=== PATIENT | male | born 1960 | race African-American/Black ===

== ENCOUNTER 2018-12-15 09:47 | Inpatient (IN) | payer OTHER ==
[2018-12-15 10:17] VITALS: BMI 25.0
--- NOTE | 2018-12-15 10:55 | HP ---
Addendum entered and electronically signed by Shelia Iqbal, RESIDENT 12/15/18 11 :16: +alcohol withdrawal and intoxication Original Note: CIWA Score Nausea/Vomitin Muscle Tremors: 3 Anxiety: 2 Agitation: 0-Normal Activity Paroxysmal Sweats: 2 Orientation: 0-Oriented Tacttile Disturbances: 1-Very Mild Itch/Numbness Auditory Disturbances: 0-None Visual Disturbances: 0-None Headache: 1-Very Mild CIWA-Ar Total Score: 12 - Admission Criteria OASAS Guidelines: Admission for Medically Managed Detox: Requires at least one of the followin. CIWA greater than 12 2. Seizures within the past 24 hours 3. Delirium tremens within the past 24 hours 4. Hallucinations within the past 24 hours 5. Acute intervention needed for co occurring medical disorder 6. Acute intervention needed for co occurring psychiatric disorder 7. Severe withdrawal that cannot be handled at a lower level of care (continued vomiting, continued diarrhea, abnormal vital signs) requiring intravenous medication and/or fluids 8. Admission ROS [facility] Chief Complaint: 58 y/o M with PMH HTN, HLD who presents for alcohol detox. This AM drank 5 beers. Usually drinks daily 15 beers/day. Has relapsed ever since he and his a year ago. Has been in detox for alcohol previously at [facility] 2013 , 2016. Longest sobriety has been 7 months. No alcohol seizures in past, no past suicidal attempts. No psych history. Would like to go to assisted rehab after detox. PMH: HTN, HLD PsxH: gastric bypass, R hip replacement (2000), L knee sx meds: denies allergies: NKDA FH: dad- alcoholic, mother- heart condition SH: live in [place] in an apartment, with 27 year old daughter 1 ppd x 40 yrs cigarette smoking alcohol use as above used to use 20-30 yrs ago cocaine intranasally, smoked. no IVDA Allergies/Adverse Reactions: Allergies Allergy/AdvReac Type Severity Reaction Status Date / Time No Known Allergies Allergy Verified 12/15/18 10:10 History of Present Illness: 58 y/o M with PMH HTN, HLD who presents for alcohol detox Exam Limitations: No Limitations - Ebola screening Have you traveled outside of the country in the last 21 days: No Have you had contact with anyone from an Ebola affected area: No Do you have a fever: No - Review of Systems Constitutional: Unintentional Wgt. Loss EENT: reports: No Symptoms Reported Respiratory: reports: No Symptoms reported Cardiac: reports: No Symptoms Reported GI: reports: Nausea, Vomiting : reports: No Symptoms Reported Musculoskeletal: reports: No Symptoms Reported Integumentary: reports: No Symptoms Reported Neuro: reports: No Symptoms reported Endocrine: reports: No Symptoms Reported Hematology: reports: No Symptoms Reported Psychiatric: reports: Orientated x3 Patient History - Patient Medical History Hx Anemia: No Hx Asthma: No Hx Chronic Obstructive Pulmonary Disease (COPD): No Hx Cancer: No Hx Cardiac Disorders: No Hx Congestive Heart Failure: No Hx Hypertension: Yes Hx Hypercholesterolemia: Yes Hx Pacemaker: No HX Cerebrovascular Accident: No Hx Seizures: No Hx Dementia: No Hx Diabetes: No Hx Gastrointestinal Disorders: No Hx Liver Disease: No Hx Genitourinary Disorders: No Hx Sexually Transmitted Disorders: No Hx Renal Disease (ESRD): No Hx Thyroid Disease: No Hx Human Immunodeficiency Virus (HIV): No (negative) Hx Hepatitis C: No (negative) Hx Depression: No Hx Suicide Attempt: No (denies) Hx Bipolar Disorder: No Hx Schizophrenia: No - Patient Surgical History Past Surgical History: Yes Hx Neurologic Surgery: No Hx Cataract Extraction: No Hx Cardiac Surgery: No Hx Lung Surgery: No Hx Breast Surgery: No Hx Breast Biopsy: No Hx Abdominal Surgery: Yes (gastric bypass 2009) Hx Appendectomy: No Hx Cholecystectomy: No Hx Genitourinary Surgery: No Hx Section: No Hx Orthopedic Surgery: Yes (RT.HIP REPLACEMENT 1999 Lt knee sx 2002) Anesthesia Reaction: No - PPD History Documented Results: Negative w/o proof Date: 01/12/16 PPD to be Administered?: Yes - Reproductive History Patient is a Female of Child Bearing Age (11 -55 yrs old): No - Smoking Cessation Smoking history: Current every day smoker Have you smoked in the past 12 months: Yes Aproximately how many cigarettes per day: 20 Hx Chewing Tobacco Use: No Initiated information on smoking cessation: Yes 'Breaking Loose' booklet given: 12/15/18 - Substance & Tx. History Hx Alcohol Use: Yes Hx Substance Use: No Substance Use Type: Alcohol Hx Substance Use Treatment: No - Substances abused Alcohol Substance route: Oral Frequency: Daily Amount used: 03/30oz cans of beer Age of first use: 16 Date of last use: 12/15/18 Family Disease History - Family Disease History Family History: Denies Family Disease History: Other: Father (ALCOHOLIC), Mother (ALCOHOLIC) Admission Physical Exam [facility] - Vital Signs Vital Signs: Vital Signs - 24 hr 12/15/18 12/15/18 10:10 10:38 Temperature 97.6 F 97.6 F Pulse Rate 97 H 97 H Respiratory 17 17 Rate Blood Pressure 149/85 149/85 - Physical General Appearance: Yes: Within Normal Limits HEENTM: Yes: Within Normal Limits Respiratory: Yes: Expiration (+increased expiratory phase) Neck: Yes: Supple Breast: Yes: Breast Exam Deferred Cardiology: Yes: Regular Rate, S1, S2 Abdominal: Yes: Non Tender, Soft Genitourinary: Yes: Within Normal Limits Back: Yes: Within Normal Limits Musculoskeletal: Yes: full range of Motion, Joint Stiffness Extremities: Yes: Within Normal Limits Neurological: Yes: instructional specialist II-XII NML intact Integumentary: Yes: Dry, Warm Lymphatic: Yes: Within Normal Limits - Diagnostic (1) Alcohol dependence with uncomplicated withdrawal Current Visit: No Status: Chronic (2) Hypercholesteremia Current Visit: No Status: Chronic (3) Hypertension Current Visit: No Status: Chronic Qualifiers: Hypertension type: essential hypertension Qualified Code(s): I10 - Essential (primary) hypertension (4) Nicotine dependence Current Visit: No Status: Chronic Qualifiers: Nicotine product type: cigarettes Substance use status: uncomplicated Qualified Code(s): F17.210 - Nicotine dependence, cigarettes, uncomplicated Cleared for Admission [facility] - Detox or Rehab [facility] Level of Care: Medically Managed Detox Regimen/Protocol: Librium Breathalyzer - Breathalyzer Breathalyzer: 0.126 Urine Drug Screen - Test Device Lot number: [id number] Expiration date: 08/12/20 - Control Is test valid?: Yes - Results Drug screen NEGATIVE: Yes Inpatient Rehab Admission - Rehab Decision to Admit Inpatient rehab admission?: No
[2018-12-15] MEDS ORDERED: chlordiazePOXIDE HCL 10 MG CAPSULE PO PRN (11:05)
[2018-12-15] MEDS ORDERED: BISMUTH SUBSALICYLATE 262 MG/15 ML BTL PO PRN (11:06)
[2018-12-15] MEDS ORDERED: IBUPROFEN 400 MG TABLET (FP) PO PRN (11:06)
[2018-12-15] MEDS ORDERED: MELATONIN 5 MG TABLETS PO PRN (11:06)
[2018-12-15] MEDS ORDERED: MAGNESIUM HYDROX 2400MG/30ML ORAL SUSPENSION 30 ML CUP PO PRN (11:06)
[2018-12-15] MEDS ORDERED: NICOTINE POLACRILEX 2 MG GUM BUC PRN (11:06)
[2018-12-15] MEDS ORDERED: ACETAMINOPHEN 325 MG TABLET (FP) PO PRN ×2 (11:06)
[2018-12-15] MEDS ORDERED: MENTHOL/PHENOL 1 EACH UD MM PRN (11:06)
[2018-12-15] MEDS ORDERED: MAG HYDROX/AL HYDROX/SIMETH 30 ML UNIT-DOSE CUP PO PRN (11:06)
[2018-12-15] MEDS ORDERED: MAGNESIUM CITRATE 300 ML BOTTLE PO PRN (11:06)
[2018-12-15] MEDS ORDERED: hydrOXYzine PAMOATE 25 MG CAPSULE (FP) PO PRN (11:06)
[2018-12-15] MEDS ORDERED: METHOCARBAMOL 500 MG TABLET PO PRN (11:06)
--- NOTE | 2018-12-15 11:26 | PN ---
MILLIE Progress Note Note: this 58 years old male with alcohol dependence seeking detox i personally present,review and plan for treatment,history and examination by Dr.Abbi Bass, agreed and concurred that patient need inpatient detox,medical managed and librium regimen
--- NOTE | 2018-12-15 11:35 | PN ---
MILLIE Progress Note Note: patient has history of acute coronary artery disease s/p angioplasty with stent 4 years ago admitted in 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
[2018-12-15] MEDS: chlordiazePOXIDE HCL 25 MG CAPSULE PO SCH ×2 (12:52→22:29)
[2018-12-15] MEDS: ASPIRIN 81 MG CHEWABLE TABLETS PO SCH (12:52)
[2018-12-15] MEDS: NICOTINE 7 MG/24 HOURS TOPICAL PATCH TD SCH (12:57)
[2018-12-15 14:57] LABS: HEMOGLOBIN 9.5 GM/dL (11.7-16.9); MEAN PLT VOLUME 8.4 fl (7.5-11.1)
[2018-12-15 15:00] LABS: ALBUMIN 3.9 g/dl (3.4-5.0); BILIRUBIN,TOTAL 0.5 mg/dL (0.2-1); BLOOD UREA NITROGEN 9.8 mg/dL (7-18); CALCIUM 8.8 mg/dL (8.5-10.1); CREATININE 1.1 mg/dL (0.55-1.3); POTASSIUM 4.6 mmol/L (3.5-5.1); TOT PROT 8.4 g/dl (6.4-8.2)
[2018-12-15 15:07] LABS: HEMATOCRIT 31.4 % (35.4-49); MCHC 30.2 g/dl (32.0-35.9); MEAN CELL VOLUME 64.3 fl (80-96); PLATELET COUNT 197 K/MM3 (134-434); RBC 4.89 M/mm3 (4.00-5.60); RDW 21.2 % (11.9-15.9); WHITE BLOOD COUNT 5.9 K/mm3 (4.0-10.0)
[2018-12-15 15:08] LABS: MCH 19.4 pg (25.7-33.7)
[2018-12-15] MEDS ORDERED: THIAMINE HCL 100 MG TABLET (FP) PO SCH (22:00)
[2018-12-16] MEDS: chlordiazePOXIDE HCL 25 MG CAPSULE PO SCH ×2 (06:15→12:03)
[2018-12-16 09:40] LABS: URINE APPEARANCE CLEAR; URINE BILIRUBIN NEGATIVE (NEGATIVE); URINE COLOR YELLOW; URINE GLUCOSE (UA) NEGATIVE (NEGATIVE); URINE KETONE NEGATIVE (NEGATIVE); URINE LEUK ESTERASE NEGATIVE (NEGATIVE); URINE NITRITE POSITIVE (NEGATIVE); URINE PROTEIN NEGATIVE (NEGATIVE); URINE UROBILINOGEN 0.2 mg/dL (0.2-1.0)
[2018-12-16 09:45] VITALS: BP 186/90; PULSE 97; TEMP 97
[2018-12-16] MEDS ORDERED: PRENATAL VITAMINS W/ FOLIC ACID TABLET (FP) PO SCH (10:00)
--- NOTE | 2018-12-16 10:36 | EKG ---
Test Reason : Blood Pressure : / mmHG Vent. Rate : 080 BPM Atrial Rate : 080 BPM P-R Int : 144 ms QRS Dur : 102 ms QT Int : 418 ms P-R-T Axes : 074 013 046 degrees QTc Int : 482 ms NORMAL SINUS RHYTHM VOLTAGE CRITERIA FOR LEFT VENTRICULAR HYPERTROPHY INFERIOR INFARCT , AGE UNDETERMINED ABNORMAL ECG NO PREVIOUS ECGS AVAILABLE Confirmed by ZHANG GRIMALDO MD ([id number]) on 12/16/2018 10:36:01 AM Referred By: Confirmed By:ZHANG GRIMALDO MD
[2018-12-16] MEDS: NICOTINE 7 MG/24 HOURS TOPICAL PATCH TD SCH (10:53)
[2018-12-16] MEDS: ASPIRIN 81 MG CHEWABLE TABLETS PO SCH (10:53)
[2018-12-16 13:33] LABS: URINE RBC 0.7 /hpf (0-4); URINE WBC 0.3 /hpf (0-5)
--- NOTE | 2018-12-16 15:58 | DS ---
[facility] Detox Discharge Summary Admission Date: 12/15/18 Discharge Date: 12/16/18 - History Present History: Alcohol Dependence Additional Comments: 58 years old male admitted on 12/15/18 for alcohol withdrawal stabilization insists to leave the detox unit alert no acute distress denies suicidal ideation "family needs me" Pertinent Past History: hypertension hypercholesterolemia cardiac stent - Physical Exam Results Vital Signs: Vital Signs Temperature 97.0 F L 12/16/18 09:44 Pulse Rate 97 H 12/16/18 09:44 Respiratory Rate 18 12/16/18 09:44 Blood Pressure 186/90 H 12/16/18 09:44 O2 Sat by Pulse Oximetry (%) Pertinent Admission Physical Exam Findings: Laboratory Last Values WBC 5.9 K/mm3 (4.0-10.0) 12/15/18 11:15 RBC 4.89 M/mm3 (4.00-5.60) 12/15/18 11:15 Hgb 9.5 GM/dL (11.7-16.9) L 12/15/18 11:15 Hct 31.4 % (35.4-49) L D 12/15/18 11:15 MCV 64.3 fl (80-96) L 12/15/18 11:15 MCH 19.4 pg (25.7-33.7) L D 12/15/18 11:15 MCHC 30.2 g/dl (32.0-35.9) L 12/15/18 11:15 RDW 21.2 % (11.9-15.9) H 12/15/18 11:15 Plt Count 197 K/MM3 (134-434) D 12/15/18 11:15 MPV 8.4 fl (7.5-11.1) 12/15/18 11:15 Sodium 132 mmol/L (136-145) L 12/15/18 11:15 Potassium 4.6 mmol/L (3.5-5.1) 12/15/18 11:15 Chloride 99 mmol/L (98-107) 12/15/18 11:15 Carbon Dioxide 24 mmol/L (21-32) 12/15/18 11:15 Anion Gap 9 MMOL/L (8-16) 12/15/18 11:15 BUN 9.8 mg/dL (7-18) 12/15/18 11:15 Creatinine 1.1 mg/dL (0.55-1.3) 12/15/18 11:15 Est GFR (CKD-EPI)AfAm 84.71 12/15/18 11:15 Est GFR (CKD-EPI)NonAf 73.09 12/15/18 11:15 Random Glucose 70 mg/dL (74-106) L 12/15/18 11:15 Calcium 8.8 mg/dL (8.5-10.1) 12/15/18 11:15 Total Bilirubin 0.5 mg/dL (0.2-1) 12/15/18 11:15 AST 57 U/L (15-37) H 12/15/18 11:15 ALT 41 U/L (13-61) 12/15/18 11:15 Alkaline Phosphatase 80 U/L (45-117) 12/15/18 11:15 Total Protein 8.4 g/dl (6.4-8.2) H 12/15/18 11:15 Albumin 3.9 g/dl (3.4-5.0) 12/15/18 11:15 Urine Color Yellow 12/15/18 18:40 Urine Appearance Clear 12/15/18 18:40 Urine pH 6.0 (5.0-8.0) 12/15/18 18:40 Ur Specific [place] 1.004 (1.010-1.035) L 12/15/18 18:40 Urine Protein Negative (NEGATIVE) 12/15/18 18:40 Urine Glucose (UA) Negative (NEGATIVE) 12/15/18 18:40 Urine Ketones Negative (NEGATIVE) 12/15/18 18:40 Urine Blood Negative (NEGATIVE) 12/15/18 18:40 Urine Nitrite Positive (NEGATIVE) H 12/15/18 18:40 Urine Bilirubin Negative (NEGATIVE) 12/15/18 18:40 Urine Urobilinogen 0.2 mg/dL (0.2-1.0) 12/15/18 18:40 Ur Leukocyte Esterase Negative (NEGATIVE) 12/15/18 18:40 Urine WBC (Auto) 0.3 /hpf (0-5) 12/15/18 18:40 Urine RBC (Auto) 0.7 /hpf (0-4) 12/15/18 18:40 Urine Casts (Auto) 1.10 /lpf (0-8) 12/15/18 18:40 U Epithel Cells (Auto) 1.0 /HPF (0-5/HPF) 12/15/18 18:40 Urine Bacteria (Auto) 4932.0 /hpf (NEGATIVE) 12/15/18 18:40 RPR Titer Nonreactive (NONREACTIVE) 12/15/18 11:15 HIV 1&2 Antibody Screen Negative 12/15/18 12:00 HIV P24 Antigen Negative 12/15/18 12:00 lab noted - Treatment Hospital Course: Detox Protocol Followed, Responded well Patient has Accepted a Rehab Referral to: community self help group - Medication Discharge Medications: Ambulatory Orders Clopidogrel Bisulfate [Plavix -] 75 mg PO DAILY 01/10/16 Enalapril Maleate [Vasotec -] 10 mg PO DAILY 01/10/16 Metoprolol Succinate [Toprol XL -] 25 mg PO BID 01/10/16 Simvastatin 10 mg PO HS 01/10/16 - Diagnosis (1) Stented coronary artery Status: Chronic (2) Alcohol dependence with uncomplicated withdrawal Status: Acute (3) Hypercholesteremia Status: Chronic (4) Hypertension Status: Chronic Qualifiers: Hypertension type: essential hypertension Qualified Code(s): I10 - Essential (primary) hypertension (5) Nicotine dependence Status: Acute Qualifiers: Nicotine product type: cigarettes Substance use status: in withdrawal Qualified Code(s): F17.213 - Nicotine dependence, cigarettes, with withdrawal - AMA Did Patient Leave Against Medical Advice: Yes
[2018-12-17] MEDS ORDERED: chlordiazePOXIDE 5 MG CAPSULE PO SCH (05:00)
[2018-12-18] MEDS ORDERED: chlordiazePOXIDE HCL 10 MG CAPSULE PO PRN
[2018-12-18] MEDS ORDERED: chlordiazePOXIDE HCL 10 MG CAPSULE PO SCH (05:00)
[2018-12-19] MEDS ORDERED: chlordiazePOXIDE HCL 10 MG CAPSULE PO ONE (05:00)
== END 2018-12-16 11:10 | disposition left against medical advice (07) | DRG 770 ==
LOC: YASAS 09:47 → Y3N 11:50
PROVIDERS: ADMIT Surgery; ATTEND Surgery
PROC: HZ2ZZZZ Detoxification Services for Substance Abuse Treatment (ICD-10-PCS; principal; 2018-12-15)
DX: F10.230 Alcohol dependence with withdrawal, uncomplicated (principal); F17.213 Nicotine dependence, cigarettes, with withdrawal; E78.00 Pure hypercholesterolemia, unspecified; I25.10 Atherosclerotic heart disease of native coronary artery without angina pectoris; I10 Essential (primary) hypertension; Z95.5 Presence of coronary angioplasty implant and graft; Z98.84 Bariatric surgery status; Z96.641 Presence of right artificial hip joint
CPT/HCPCS: 36415; 80053; 81003; 85027; 86480; 86593; 87389; 93005; 93010